=== PATIENT | male | born 1960 | race Caucasian/White ===

== ENCOUNTER 2018-06-29 08:44 | Emergency (ER) | payer OTHER | END 2018-06-29 10:58 | disposition home or self-care (01) | LOC: EDH 08:44 | DX: S93.692A Other sprain of left foot, initial encounter (principal); S13.4XXA Sprain of ligaments of cervical spine, initial encounter; E78.5 Hyperlipidemia, unspecified; I10 Essential (primary) hypertension; Z87.891 Personal history of nicotine dependence; W18.39XA Other fall on same level, initial encounter; Y93.89 Activity, other specified; Y92.89 Other specified places as the place of occurrence of the external cause; Y99.8 Other external cause status | CPT/HCPCS: 72040; 72100; 73630 ==